=== PATIENT | female | born 1945 | race Caucasian/White ===

== ENCOUNTER 2016-12-17 12:45 | Emergency (ER) | payer OTHER ==
--- NOTE | ~2016-12-17 | CR94 ---
[facility]. [facility] A Service of [facility] & [facility] RADIOLOGY TEXT RESULTS PATIENT: TEA DUARTE LOCATION: SED : 47 UNIT #: [id number] AGE: [address]: Herbert Farias MD SEX: F ORDER DR: [id number] [place] [id number] E MR#: [id number] Acc #: [id number] NAME: TEA DUARTE : 1945 SEX: F STUDY DATE/TIME: 12/17/2016 13:22 UNIT: SED ROOM: STUDY DESCRIPTION: CR Elbow Min 3 Views Rt Attending Physician: Herbert Farias M.D. Ordering Physician: Herbert Farias M.D. Primary Care Physician: Michael Hawk M.D. MEDICAL IMAGING REPORT This report is preliminary unless electronic signature is present. EXAM Right elbow 3 views HISTORY Elbow pain after fall today. FINDINGS 3 views of the right elbow demonstrate satisfactory bone alignment. Soft tissue injury along the posterior margin of the elbow. No fracture, joint space narrowing or effusion. IMPRESSION 1. No fracture. 2. Soft tissue injury along the posterior margin of the elbow. Dictated by... Benjie Ortega M.D. THIS IS AN ELECTRONICALLY VERIFIED REPORT Benjie Ortega M.D. at 12/17/2016 10:48 PM DFL/pcl TD: 12/17/2016 14:50 JOB #: [id number] MEDICAL IMAGING REPORT Page 1 of 1
--- NOTE | ~2016-12-17 | CT52 ---
[facility] A Service of [facility] & [facility] RADIOLOGY TEXT RESULTS PATIENT: TEA DUARTE LOCATION: SED : [birth year] UNIT #: [id number] AGE: [address]: Herbert Farias MD SEX: F ORDER DR: [id number] [place] [id number] E MR#: [id number] Acc #: [id number] NAME: TEA DUARTE. : 1945 SEX: F STUDY DATE/TIME: 12/17/2016 13:15 UNIT: SED ROOM: STUDY DESCRIPTION: CT Cervical Spine Wo Cont Attending Physician: Herbert Farias M.D. Ordering Physician: Herbert Farias M.D. Primary Care Physician: Michael Hawk M.D. MEDICAL IMAGING REPORT This report is preliminary unless electronic signature is present. EXAM CT of the cervical spine without contrast 12/17/2016 COMPARISON None. HISTORY Status post fall at home. Patient hit face first on the floor with right orbital swelling, bruising, abrasions on the right side of the face. There is also injury to the posterior neck with stiffness and pain. Posterior elbow pain with abrasion also along with headaches. TECHNIQUE This CT exam was performed with one or more of the following radiation dose reduction techniques: automatic control, adjustment of mA and/or kV according to patient size, and iterative reconstruction. FINDINGS CT of the C-spine was obtained without contrast in the axial plane followed by sagittal and coronal reformats. Degenerative changes are noted at multiple levels of the cervical spine. Anterior and posterior endplate osteophytes are noted in the mid to lower C-spine with associated loss of disc height from C4-5 to C6-7 levels. No acute fracture or subluxation is seen. C1-2 and C7-T1 junctions do not demonstrate any significant abnormality. Pre and paravertebral soft tissues do not demonstrate any significant abnormality. Diffuse fatty infiltration of bilateral parotid glands are seen. C2-3: Disc osteophyte complex with left uncinate spur. Moderate to severe left facet hypertrophic change is seen with mild to moderate left neural foraminal narrowing. No significant canal stenosis. STS. [facility] A Service of [facility] & [facility] RADIOLOGY TEXT RESULTS PATIENT: TEA DUARTE LOCATION: SED : [birth year] UNIT #: [id number] AGE: [address]: Herbert Farias MD SEX: F ORDER DR: C3-4: Disc osteophyte complex with left uncinate spur and mild to moderate left neural foraminal narrowing. Suspicious small central protrusion with borderline size to mild canal stenosis. C4-5: Disc osteophyte complex with small central protrusion and mild canal stenosis. Mild to moderate bilateral facet hypertrophic changes are noted with moderate to severe left and mild right neural foraminal narrowing. C5-6: Disc osteophyte complex which is asymmetrically prominent in the left central to subarticular region. It extends towards the left uncinate region and is probably a left uncinate spur. Mild to moderate bilateral facet hypertrophic changes are noted with severe left neural foraminal narrowing. Mild to moderate canal stenosis. C6-7: Disc osteophyte complex with bilateral uncinate spurs, mild left neural foraminal narrowing and mild canal stenosis. C7-T1: Disc osteophyte complex with moderate bilateral facet hypertrophic changes without canal stenosis or neural foraminal narrowing. IMPRESSION 1. No acute fracture or subluxation. 2. Degenerative changes are noted at multiple levels, worse at C5-6 as described above with left neural foraminal narrowing and canal stenosis. Dictated by... Nelly Sandoval M.D. THIS IS AN ELECTRONICALLY VERIFIED REPORT Nelly Sandoval M.D. at 12/19/2016 8:32 PM CPR/rnr TD: 12/18/2016 00:08 JOB #: [id number] MEDICAL IMAGING REPORT Page 1 of 1
--- NOTE | ~2016-12-17 | CT71 ---
[facility] A Service [facility] RADIOLOGY TEXT RESULTS PATIENT: TEA DUARTE LOCATION: SED : [birth year] UNIT #: [id number] AGE: [address]: Herbert Farias MD SEX: F ORDER DR: [id number] [place] [id number] E MR#: [id number] Acc #: [id number] NAME: TEA DUARTE : 1945 SEX: F STUDY DATE/TIME: 12/17/2016 13:04 UNIT: SED ROOM: STUDY DESCRIPTION: CT Head Wo Contrast Attending Physician: Herbert Farias M.D. Ordering Physician: Herbert Farias M.D. Primary Care Physician: Michael Hawk M.D. MEDICAL IMAGING REPORT This report is preliminary unless electronic signature is present. EXAM CT head without IV contrast COMPARISON None. INDICATIONS 71-year-old female with right-sided headache after falling and hitting her face and head on the floor today. TECHNIQUE This CT exam was performed with one or more of the following radiation dose reduction techniques: automatic exposure control, adjustment of mA and/or kV according to patient size, and iterative reconstruction. FINDINGS There is a kdeyw-cn-sbuycxvi subcutaneous hematoma over the right frontal bone. No radiopaque foreign body. There is a small subcutaneous gas consistent with laceration. Visualized mastoid air cells, middle ears and paranasal sinuses are well-aerated. No acute fractures or suspicious osseous lesions. Normal cerebral volume. No mass effect. No abnormal extraaxial fluid collection. No acute intracranial hemorrhage. Moderate chronic-appearing hypoattenuation in the bilateral parietal white matter, adjacent to the lateral ventricles. Focal chronic lacunar infarct in the right frontal white matter. IMPRESSION 1. No acute intracranial abnormality. 2. Smja-fu-tgyrglkk chronic small vessel ischemic change. No evidence of acute ischemia. [facility] A Service of [facility] RADIOLOGY TEXT RESULTS PATIENT: TEA DUARTE LOCATION: SED : [birth year] UNIT #: [id number] AGE: [address]: Herbert Farias MD SEX: F ORDER DR: Dictated by... Derek Hinds M.D. THIS IS AN ELECTRONICALLY VERIFIED REPORT Derek Hinds M.D. at 12/22/2016 8:50 PM BLM/pcl TD: 12/17/2016 14:53 JOB #: [id number] MEDICAL IMAGING REPORT Page 1 of 1
[2016-12-17] MEDS ORDERED: CITALOPRAM HBR40 M1 (12:49)
[2016-12-17] MEDS ORDERED: AMBIEN12.5 M1 (12:49)
[2016-12-17] MEDS ORDERED: AMLODIPINE BESYL5 MG (12:49)
[2016-12-17] MEDS ORDERED: BYSTOLIC10 MG (12:49)
[2016-12-17] MEDS ORDERED: PRAVACHOL (12:50)
[2016-12-17] MEDS ORDERED: MODAFINIL200 MG (12:50)
== END 2016-12-17 14:54 | disposition home or self-care (01) ==
LOC: SED 12:45
DX: S01.81XA Laceration without foreign body of other part of head, initial encounter (principal); S51.011A Laceration without foreign body of right elbow, initial encounter; Z23 Encounter for immunization; W19.XXXA Unspecified fall, initial encounter; Y92.9 Unspecified place or not applicable
CPT/HCPCS: 12013; 70450; 72125; 73080; 90471; 90715; 99284

== ENCOUNTER → 2016-12-20 | Outpatient (CLI) | payer MEDICARE ==
[~2016-12-20] MED LIST: AMBIEN12.5 M1; AMLODIPINE BESYL5 MG; BYSTOLIC10 MG; CITALOPRAM HBR40 M1; MODAFINIL200 MG; PRAVACHOL
--- NOTE | ~2016-12-20 | MR165 ---
[facility] A Service of [facility] & [facility] RADIOLOGY TEXT RESULTS PATIENT: TEA DUARTE LOCATION: [facility] : [birth year] UNIT #: [id number] AGE: [address]: Tacho Salazar MD SEX: F ORDER DR: [id number] [place] [id number] O MR#: [id number] Acc #: [id number] NAME: TEA DUARTE : 1945 SEX: F STUDY DATE/TIME: 12/20/2016 9:28 UNIT: [facility] ROOM: STUDY DESCRIPTION: MR Shoulder Wo Contrast Rt Attending Physician: Tacho Salazar M.D. Referring Physician: Tacho Salazar M.D. Ordering Physician: Tacho Salazar M.D. Primary Care Physician: Michael Hawk M.D. MRI CENTER REPORT This report is preliminary unless electronic signature is present. EXAM MRI, right shoulder, 12/20/2016. COMPARISON Right shoulder radiographs, 08/25/2010, 01/19/2012, and 09/29/2015. HISTORY Order states right rotator cuff tear. History sheet states remote history of falls - questionably due to 30 years of seizure activity. Right shoulder pain, especially in the last 2-3 years. Fell 4 days ago with increasing right shoulder pain and limited range of motion. Decreased strength. No shoulder surgery. FINDINGS There is moderate AC joint arthrosis with capsuloligamentous thickening, articular irregularity, and mild osteophyte formation. Posterior subarticular cysts of the clavicle are noted. There is prominent marrow edema of the acromion, probably due to humeral abutment, secondary to the large rotator cuff tear and superior humeral migration detailed below. The coracoclavicular and coracoacromial ligaments are unremarkable. There is a massive rotator cuff tear with full-thickness, full-width tears in the supraspinatus and infraspinatus tendons. The tendons are retracted to the level of the glenohumeral joint. The retracted muscles are mildly atrophic. There is moderate secondary subacromial-subdeltoid and subcoracoid bursitis. Subscapularis tendinosis is present without a tear. The teres minor muscle-tendon complex is normal. There is proximal severe long-head biceps tendinosis and/or interstitial tear without obvious detachment. The glenoid labrum is unremarkable. [facility]. [facility] A Service of [facility] & [facility] RADIOLOGY TEXT RESULTS PATIENT: TEA DUARTE LOCATION: [facility] : [birth year] UNIT #: [id number] AGE: [address]: Tacho Salazar MD SEX: F ORDER DR: There is a full-thickness cartilage loss of the humeral head and moderate-grade chondromalacia of the glenoid. There is a mild complex signal glenohumeral effusion with synovitis or debris, especially in the axillary recess. There is no marrow lesion, fracture, or sizable loose body. IMPRESSION 1. Massive rotator cuff tear with full-thickness, full-width tears at the supraspinatus and infraspinatus tendons, detailed above. The retracted muscles are mildly atrophic. 2. Secondary subacromial-subdeltoid and subcoracoid bursitis and humoral-acromial abutment with acromial marrow edema. 3. AC joint arthrosis, as above. 4. Severe tendinosis and/or interstitial long-head biceps tendon tear without physical detachment. 5. Glenohumeral arthrosis, including high-grade chondromalacia of the humeral head and joint effusion with synovitis. Dictated by... Adelia Elkins M.D. THIS IS AN ELECTRONICALLY VERIFIED REPORT Adelia Elkins M.D. at 12/21/2016 1:02 PM Renetta TD: 12/21/2016 11:48 JOB #: [id number] MRI CENTER REPORT Page 1 of 1
== END | disposition home or self-care (01) ==
LOC: SMRI 12-02 09:30
DX: M75.121 Complete rotator cuff tear or rupture of right shoulder, not specified as traumatic (principal); M62.511 Muscle wasting and atrophy, not elsewhere classified, right shoulder; M75.51 Bursitis of right shoulder; M19.011 Primary osteoarthritis, right shoulder; M94.211 Chondromalacia, right shoulder; M25.411 Effusion, right shoulder; M65.811 Other synovitis and tenosynovitis, right shoulder
CPT/HCPCS: 73221